=== PATIENT | male | born 1995 | race American Indian/Alaskan Native ===

== ENCOUNTER 2020-11-29 14:01 | Emergency (ER) | payer BC, OTHER ==
[2020-11-29 14:45] VITALS: BP 132/90
[2020-11-29] MEDS ORDERED: KETOROLAC 10 MG TAB PO ONE (14:48)
[2020-11-29] MEDS ORDERED: ACETAMINOPHEN 500 MG TAB PO STA (14:48)
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
== END 2020-11-29 15:59 | disposition home or self-care (01) ==
LOC: ED 14:01
DX: M54.2 Cervicalgia (principal); R07.81 Pleurodynia; Z91.010 Allergy to peanuts; Z91.013 Allergy to seafood; Z79.899 Other long term (current) drug therapy; V87.7XXA Person injured in collision between other specified motor vehicles (traffic), initial encounter; Y93.89 Activity, other specified; Y92.488 Other paved roadways as the place of occurrence of the external cause; Y99.8 Other external cause status
CPT/HCPCS: 99283